=== PATIENT | male | born 1985 | race American Indian/Alaskan Native ===

== ENCOUNTER 2017-02-06 16:47 | Emergency (ER) | payer OTHER ==
[2017-02-06 17:03] VITALS: BP 118/85
[2017-02-06] MEDS ORDERED: Acetaminophen/HYDROcodone 325-10 MG Tab PO ONE (18:17)
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
== END 2017-02-06 18:34 | disposition home or self-care (01) ==
LOC: DL.ED 16:47
DX: S62.614A Displaced fracture of proximal phalanx of right ring finger, initial encounter for closed fracture (principal); F17.210 Nicotine dependence, cigarettes, uncomplicated; W19.XXXA Unspecified fall, initial encounter
CPT/HCPCS: 29125; 73130; 99283; 99284; A9270

== ENCOUNTER 2017-02-13 23:10 | Emergency (ER) | payer MEDICAID, OTHER ==
[2017-02-14 00:14] VITALS: BP 151/80
[2017-02-14] MEDS ORDERED: Acetaminophen/HYDROcodone 325-10 MG Tab PO ONE (00:41)
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
== END 2017-02-14 00:50 | disposition home or self-care (01) ==
LOC: DL.ED 23:10
DX: S62.644 Nondisplaced fracture of proximal phalanx of right ring finger (principal); F17.210 Nicotine dependence, cigarettes, uncomplicated; W19.XXXS Unspecified fall, sequela
CPT/HCPCS: 99283; A9270

== ENCOUNTER 2017-04-28 13:59 | Emergency (ER) | payer MEDICAID, OTHER ==
[2017-04-28 14:18] VITALS: BP 122/83
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
== END 2017-04-28 16:02 | disposition home or self-care (01) ==
LOC: DL.ED 13:59
DX: S62.617A Displaced fracture of proximal phalanx of left little finger, initial encounter for closed fracture (principal); F17.210 Nicotine dependence, cigarettes, uncomplicated; W22.01XA Walked into wall, initial encounter
CPT/HCPCS: 73130-LT; 99283

== ENCOUNTER 2022-02-10 16:09 | Emergency (ER) | payer SELFPAY ==
[2022-02-10 16:50] VITALS: BP 77/65; PULSE 82
[2022-02-10] MEDS ORDERED: Ketorolac 30 MG/ML SDV IM ONE (17:21)
== END 2022-02-10 17:46 | disposition home or self-care (01) ==
LOC: DL.ED 16:09
DX: T81.40XA Infection following a procedure, unspecified, initial encounter (principal); H61.21 Impacted cerumen, right ear
CPT/HCPCS: 69210; 87070; 87077; 87186; 96372; 99282; 99283; J1885

== ENCOUNTER 2022-02-11 22:35 | Emergency (ER) | payer OTHER ==
[2022-02-12 01:12] VITALS: BP 116/84; PULSE 83
[2022-02-12] MEDS ORDERED: Penicillin G Benzathine/Procaine 600-600 1.2 Millunits/2 ML Syringe IM ONE (01:33)
[2022-02-12] MEDS ORDERED: cefTRIAXone 1 GM, Lidocaine 1% 2.1 ML IM ONE ×2 (01:36)
[2022-02-12] MEDS ORDERED: ceFAZolin 1 GM Vial IM ONE (01:41)
[2022-02-12] MEDS ORDERED: Water For Injection, Sterile 10 ML ONE (01:45)
== END 2022-02-12 02:01 | disposition home or self-care (01) ==
LOC: DL.ED 22:35
DX: H66.91 Otitis media, unspecified, right ear (principal); H61.21 Impacted cerumen, right ear; F17.210 Nicotine dependence, cigarettes, uncomplicated
CPT/HCPCS: 96372; 99282; J0690

== ENCOUNTER 2023-07-08 03:40 | Emergency (ER) | payer OTHER, BC ==
[2023-07-08] MEDS ORDERED: Haloperidol Lactate 5 MG/ML SDV IM ONE (03:41)
[2023-07-08] MEDS ORDERED: LORazepam 2 MG/ML SDV IM ONE (03:42)
[2023-07-08] MEDS ORDERED: LORazepam 2 MG/ML SDV IVPUSH ONE (04:16)
[2023-07-08] MEDS ORDERED: Lidocaine 1% 5 ML VIAL ONE (04:31)
[2023-07-08] MEDS ORDERED: cefTRIAXone 1 GM Vial IM ONE (04:43)
[2023-07-08] MEDS ORDERED: Diphtheria,Pertussis(Acell),Tetanus Vaccine 0.5 ML Syringe IM ONE (04:50)
[2023-07-08 06:24] VITALS: PULSE 76
== END 2023-07-08 05:05 ==
LOC: DL.ED 03:40
DX: Z02.89 Encounter for other administrative examinations (principal); Z23 Encounter for immunization
CPT/HCPCS: 12001; 90471; 90715; 96372; 96374; 99282; J0696; J1630; J2060; J3490

== ENCOUNTER 2025-02-27 11:32 | Emergency (ER) | payer MEDICAID ==
[2025-02-27 11:53] LABS: AMPHETAMINES,URINE NEGATIVE (NEGATIVE); BARBITURATES,URINE NEGATIVE (NEGATIVE); MDMA (ECSTASY), URINE NEGATIVE (NEGATIVE); METHAMPHETAMINES,URINE NEGATIVE (NEGATIVE); OPIATES,URINE NEGATIVE (NEGATIVE); OXYCODONE,URINE NEGATIVE (NEGATIVE); PHENCYCLIDINE,URINE NEGATIVE (NEGATIVE); TCA,URINE NEGATIVE (NEGATIVE)
[2025-02-27 12:09] LABS: BASOPHILS PERCENT AUTO 0.4 % (0.0-1.0); EOSINOPHILS PERCENT AUTO 2.2 % (1.0-3.0); LYMPHOCYTES PERCENT AUTO 41.3 % (20.5-50.1); MONOCYTES PERCENT AUTO 6.3 % (2-8); NEUTROPHILS PERCENT AUTO 49.8 % (42.2-75.2); PLATELET COUNT,PLT 377 10^3/uL (150-450); RED BLOOD CELL COUNT 5.79 10^6/uL (4.6-6.2); WHITE BLOOD CELL COUNT,WBC 7.3 10^3/uL (5.0-10.0)
[2025-02-27 12:28] LABS: A/G RATIO 0.8; ALANINE AMINOTRANSFERASE,ALT 31.0 U/L (16-63); ASPARTATE AMNIOTRANSFERASE,AST 37.0 U/L (15-37); BILIRUBIN TOTAL 1.0 mg/dL (0.2-1.0); BLOOD UREA NITROGEN,BUN 6.0 mg/dL (7-18); CARBON DIOXIDE,CO2 26.0 mmol/L (21-32); CHLORIDE,CL 101.0 mmol/L (98-107); CREATININE 0.69 mg/dL (0.70-1.30); EST CRCL DRUG DOSING (CG) 133.05 mL/min; ESTIMATED GFR 120.0 mL/min (>=60); ETHANOL BLOOD MEDICAL 170.0 mg/dL (0); GLUCOSE RANDOM 109.0 mg/dL (70-99); POTASSIUM,K 3.4 mmol/L (3.5-5.1); PROTEIN TOTAL,TP 9.1 g/dL (6.4-8.2); SODIUM,NA 140.0 mmol/L (136-145)
[2025-02-27] MEDS: Potassium Chloride 10 MEQ Tab.ER PO ONE (12:44)
[2025-02-27 12:50] VITALS: BP 153/97; PULSE 89
== END 2025-02-27 12:53 | disposition home or self-care (01) ==
LOC: DL.ED 11:32
DX: F10.220 Alcohol dependence with intoxication, uncomplicated (principal); E87.6 Hypokalemia; F17.210 Nicotine dependence, cigarettes, uncomplicated; Z79.899 Other long term (current) drug therapy; Y90.9 Presence of alcohol in blood, level not specified
CPT/HCPCS: 36415; 80053; 80305; 80307; 83735; 85025; 99284; A9270